=== PATIENT | female | born 1995 | race Caucasian/White ===

== ENCOUNTER 2017-06-28 12:06 | Emergency (ER) | payer OTHER ==
[2017-06-28] MEDS ORDERED: ACTIVATED CHARCOAL 25 GM BOTTLE PO ONE (12:20)
--- NOTE | 2017-06-28 12:24 | ER Document Report ---
ED Psych Disorder / Suicide - General Chief Complaint: Overdose Stated Complaint: POSSIBLE OVERDOSE Time Seen by Provider: 06/28/17 12:15 Information source: Patient Notes: 21-year-old female with a history of depression recently started around 3 weeks ago on Lexapro who supposedly took 2010 mg tablets about 1 hour prior to arrival. She did vomit around 10 minutes after the ingestion. Patient denies any auditory or visual hallucinations. No history of overdose or suicide attempts in the past. Patient denies any psychiatric hospitalizations in the past. She denies any new or worrisome conditions with family situations causing this gesture today. TRAVEL OUTSIDE OF THE [place] IN LAST 30 DAYS: No - HPI Patient complains to provider of: Suicidal attempt Onset: Just prior to arrival Onset was: Sudden Quality of pain: No pain Severity: Severe Pain Level: Denies Suicide Risk Factors: Other - See above Situational problems related to: Other - See above Suicide Attempt Method: Overdose Overdose of: Other - See above Normal mood: No Associated symptoms: Other - Tearful affect Similar symptoms previously: No Recently seen / treated by doctor: No - Related Data Allergies/Adverse Reactions: No Known Allergies Allergy (Verified 06/28/17 13:18) Past Medical History - General Information source: Patient - Social History Smoking Status: Unknown if Ever Smoked Cigarette use (# per day): No Chew tobacco use (# tins/day): No Smoking Education Provided: No Frequency of alcohol use: None Family History: Reviewed & Not Pertinent Review of Systems - Review of Systems Constitutional: denies: Fever EENT: denies: Eye discharge, Nose discharge Cardiovascular: denies: Chest pain, Palpitations, Heart racing Respiratory: denies: Short of breath Gastrointestinal: denies: Vomiting Genitourinary: denies: Dysuria Musculoskeletal: denies: Leg swelling Skin: Other - no hives. denies: Rash Neurological/Psychological: Other - no slurred speech -: Yes All other systems reviewed and negative Physical Exam - Vital signs Vitals: Temp Resp BP Pulse Ox 99.4 F 16 152/99 H 100 06/28/17 12:14 06/28/17 12:14 06/28/17 12:14 06/28/17 12:14 Notes: Reviewed vital signs and nursing note as charted by RN. CONSTITUTIONAL: Alert and oriented and responds appropriately to questions. Tearful in affect HEAD: Normocephalic; atraumatic EYES: PERRL; Sclerae non-icteric ENT: Normal nose; no rhinorrhea; moist mucous membranes; pharynx without lesions noted NECK: Supple without meningismus; non-tender CARD: Regular rate and rhythm; no murmurs RESP: Normal chest excursion without splinting or tachypnea; breath sounds clear and equal bilaterally ABD/GI: Normal bowel sounds; non-distended; soft, non-tender BACK: The back appears normal and is non-tender to palpation EXT: Normal ROM in all joints; non-tender to palpation SKIN: No acute lesions noted NEURO: CN II through XII are intact. Moves all extremities equally; Motor and sensory function intact PSYCH: The patient's mood and manner are appropriate. Grooming and personal hygiene are appropriate. Course - Re-evaluation Re-evalutation: 06/28/17 12:23 I did call the [facility] and they would like the patient on the monitor, obtain basic labs, magnesium level, and EKG, and provide activated charcoal. I do not believe that the patient is a high aspiration risk, so I do believe activated charcoal is reasonable. They believe the patient should be monitored for at least 6 hours. They state that the ingestion is greater than 300 mg, they recommend 24-hour monitoring. It appears from the patient's bottle that the patient ingested a maximum of 200 mg. Patient is currently on the monitor. Vital signs as recorded with a heart rate of 109. EKG shows a heart rate of 109, sinus tachycardia, narrow QRS, no obvious ST elevation or depression 06/28/17 13:03 We have provided the charcoal. Vital signs are still stable. Patient's mood has improved. 06/28/17 13:44 Vital signs are stable. The monitor shows no obvious ectopy. Labs as recorded. 06/28/17 18:01 Patient has remained stable on the monitor for 6 hour period. - Vital Signs Vital signs: Temp Pulse Resp BP Pulse Ox 99.4 F 22 H 116/67 98 06/28/17 12:14 06/28/17 17:21 06/28/17 17:21 06/28/17 17:21 - Laboratory Result Diagrams: 06/28/17 12:15 06/28/17 12:15 Laboratory results interpreted by me: 06/28/17 06/28/17 06/28/17 12:15 12:15 13:24 MCV 78 L MCH 25.4 L Eosinophils % 11.6 H Absolute Eosinophils 0.9 H Carbon Dioxide 21 L Glucose 115 H Ur Leukocyte Esterase SMALL H Salicylates < 1.0 L Acetaminophen < 10 L Critical Care Note - Critical Care Note Total time excluding time spent on procedures (mins): 40 Discharge - Discharge Clinical Impression: Suicide attempt Overdose Qualifiers: Encounter type: initial encounter Injury intent: intentional self-harm Qualified Code(s): T50.902A - Poisoning by unspecified drugs, medicaments and biological substances, intentional self-harm, initial encounter Condition: Fair Disposition: PSYCH HOSP/UNIT
[2017-06-28 12:33] LABS: ABSOLUTE BASOPHILS # (AUTO) 0.1 10^3/uL (0.0-0.2); ABSOLUTE EOSINOPHILS # (AUTO) 0.9 10^3/uL (0.0-0.6); ABSOLUTE LYMPHOCYTES (AUTO) 1.9 10^3/uL (0.5-4.7); ABSOLUTE MONOCYTES (AUTO) 0.6 10^3/uL (0.1-1.4); BASOPHILS % (AUTO) 1.1 % (0-2); EOSINOPHILS % (AUTO) 11.6 % (0-6); HEMATOCRIT 39.2 % (36.0-47.0); HEMOGLOBIN 12.8 g/dL (12.0-15.5); LYMPHOCYTES % (AUTO) 25.7 % (13-45); MEAN CORPUSCULAR HEMOGLOBIN 25.4 pg (27.0-33.4); MEAN CORPUSCULAR HGB CONC 32.7 g/dL (32.0-36.0); MEAN CORPUSCULAR VOLUME 78 fl (80-97); MONOCYTES % (AUTO) 8.5 % (3-13); PLATELET COUNT 372 10^3/uL (150-450); RED BLOOD COUNT 5.05 10^6/uL (3.72-5.28); RED CELL DISTRIBUTION WIDTH 13.8 % (11.5-14.0); SEGMENTED NEUTROPHILS % (AUTO) 53.1 % (42-78); TOTAL CELLS COUNTED % (AUTO) 100 %; WHITE BLOOD COUNT 7.5 10^3/uL (4.0-10.5)
[2017-06-28 12:47] LABS: ALANINE AMINOTRANSFERASE 29 U/L (9-52); ALBUMIN 4.7 g/dL (3.5-5.0); ALKALINE PHOSPHATASE 68 U/L (38-126); ANION GAP 17 (5-19); ASPARTATE AMINO TRANSFERASE 21 U/L (14-36); BILIRUBIN,DIRECT 0.2 mg/dL (0.0-0.4); BILIRUBIN,TOTAL 0.4 mg/dL (0.2-1.3); BLOOD UREA NITROGEN 12 mg/dL (7-20); CALCIUM 9.2 mg/dL (8.4-10.2); CARBON DIOXIDE 21 mmol/L (22-30); CHLORIDE 104 mmol/L (98-107); GLUCOSE 115 mg/dL (75-110); POTASSIUM 4.3 mmol/L (3.6-5.0); SODIUM 142.4 mmol/L (137-145); TOTAL PROTEIN 6.9 g/dL (6.3-8.2)
[2017-06-28 12:48] LABS: ACETAMINOPHEN < 10 ug/mL (10-30); ALCOHOL < 10 mg/dL (NONE DETECTED); SALICYLATE < 1.0 mg/dL (2.0-20.0)
[2017-06-28 13:41] LABS: APPEARANCE,URINE CLEAR; BILIRUBIN,URINE NEGATIVE (NEGATIVE); COLOR,URINE YELLOW; GLUCOSE, URINE NEGATIVE (NEGATIVE); KETONES,URINE NEGATIVE (NEGATIVE); LEUKOCYTE ESTERASE,URINE SMALL (NEGATIVE); NITRITE,URINE NEGATIVE (NEGATIVE); PROTEIN,URINE NEGATIVE (NEGATIVE); URINE SPECIFIC GRAVITY 1.014; UROBILINOGEN,URINE NEGATIVE mg/dL (<2.0)
[2017-06-28 13:55] LABS: URINE AMPHETAMINES SCREEN NEGATIVE; URINE BARBITURATES SCREEN NEGATIVE; URINE BENZODIAZEPINES SCREEN NEGATIVE; URINE COCAINE SCREEN NEGATIVE; URINE MARIJUANA (THC) SCREEN NEGATIVE; URINE METHADONE SCREEN NEGATIVE; URINE PHENCYCLIDINE SCREEN NEGATIVE
--- NOTE | 2017-06-28 15:15 | PSYCHOLOGICAL NOTE ---
Psych Note - Psych Note Psych Note: Reason for consult: Suicidal ideation, and attempt Contact Permissions, Jadon Juarez Time of consult: 1:54 pm : Disposition 2:57 pm Patient is a 21 year old female. Patient reports taking approximately 20 pills of her Lexapro. Patient reports she then told her what she did because she "felt bad". Patient reports she "feels bad" for her family and her because she wanted to kill herself and states that she does not want to attempt suicide again because she doesn't want to hurt anyone. Patient reports she has been having suicidal thoughts for 5 months , and has experienced depression for a year. Patient reports she talked to her about her feelings but never told him how serious she was about the thoughts ( whether she had intent). Patient reports around 5 months ago she went to see a therapist for around 1 month but did not like the therapy, so she stopped going. Patient reports she went to her primary care and was diagnosed with PTSD and depression by her Nurse Practitioner. Patient reports she reported to the nurse practitioner that the medications worked at first but then were no longer working, and her dosage was increased by 10 mg of Lexapro to 20 mg of Lexapro daily but she never went to fill the prescription. Patient denies any previous inpatient psychiatric stay, patient denies any previous history of substance use. Patient denies active SI/HI at the end of assessment. Clinician provided information to patient regarding Involuntary commitment process and criteria. Clinician observed patient presents with flat affect and guarded. Collateral Information [ Spouse Fredy Juarez] Patient's reports a few days ago patient talked about her suicidal ideation but assured her that she would not act on those thoughts. Patient's reports he is concerned for her safety because he could not tell that anything was wrong, and she was not honest with him and attempted suicide. Patient's reports he was aware of her depression and assisted her in seeing a therapist, but was aware that she was not benefiting from the ( 1 month) of therapy. Patient's reports he does not feel patient is being truthful to hospital staff about not having active SI during assessment. Medication Recommendation: Medication recommendation made by contracted [facility] psychiatrist Dr. Mark MD includes: 1. Begin Vistaril 50 mg by mouth every 6 hours as needed. 2. Discontinue Lexapro 10 mg by mouth daily. 3. Begin Effexor 37.5 mg by mouth daily. 4. Begin BuSpar 10 mg by mouth QHS. Diagnosis: Per patient Hx: 309.81 ( F43.10) Post traumatic stress disorder Per patient Hx: 311 ( F32.0) Unspecified Depressive Disorder Impression/ Plan: Recommendation to involuntary commit patient due to patient meeting criteria [facility] 122C, patient stated " I tried to kill myself".Patient reports she took approximately 20 pills of her medications with intent to commit suicide.
--- NOTE | 2017-06-28 16:04 | EKG REPORT ---
SEVERITY:- BORDERLINE ECG - SINUS TACHYCARDIA BORDERLINE T ABNORMALITIES, INFERIOR LEADS : Confirmed by: Jose Raul Bliss MD 28-Jun-2017 16:03:55
[2017-06-28] MEDS: HYDROXYZINE PAMOATE 50 MG CAPSULE PO PRN (21:14)
[2017-06-28] MEDS ORDERED: BUSPIRONE HCL 10 MG TABLET PO SCH (22:00)
[2017-06-29] MEDS: HYDROXYZINE PAMOATE 50 MG CAPSULE PO PRN (00:15)
--- NOTE | 2017-06-29 08:53 | PSYCHOLOGICAL NOTE ---
Psych Note - Psych Note Psych Note: Reason for Consult: Suicidal Ideation - consult re-evaluation Contact permissions: Fredy [phone] Patient is a 21 year old female. Patient reports she is feeling better. Patient reports she slept well last night. Patient stated " I made a rash decision and I regret it". Patient denies SI/HI. Patient stated " I want to live, and I have my family and aunt who supports me". Patient reports that she is interested in seeking therapy again, stating " I'd like to try it again". Clinician observed patient appears with brighter affect, and is laughing/smiling with her . Clinician observed patient is oriented to person, time, and situation. Collateral Information: Patient's reports he is able to monitor patient at home, and is able to notice when patient is not doing well mentally. Patient' s reports he notices a change in personality, and patient will do things differently. Patient's reports if he feels patient is at risk of a suicidal attempt or has SI with intent and plan he will bring her to the ED. Patient's reports he will lock her medications away and monitor them, assisting her with medication administration. Medication Recommendation: Medication recommendation made by contracted [facility] psychiatrist Dr. Mark MD includes: 1. Continue Vistaril 50 mg by mouth every 6 hours as needed. 2. Continue Effexor 37.5 mg by mouth daily. 3. Continue BuSpar 10 mg by mouth QHS. Diagnosis: Per patient Hx: 309.81 ( F43.10) Post traumatic stress disorder Per patient Hx: 311 ( F32.0) Unspecified Depressive Disorder Impression/Plan: Patient is psychiatrically cleared for discharge. Recommendation to rescind involuntary commitment due to patient not meeting criteria [place] [facility] 122C. Recommendation for patient to see an outpatient therapist and follow up with provider for medication management.
[2017-06-29] MEDS ORDERED: VENLAFAXINE HCL 37.5 MG CAP.SR.24H PO SCH (10:00)
--- NOTE | 2017-06-29 10:09 | ER Document Report ---
Doctor's Note Notes: 06/29/17 10:08 Rounds: Chart reviewed. Patient sleeping so not awakened for interview. Being evaluated for PTSD, depression, and suicidal thoughts. Lab studies are all normal. Vital signs are all normal. Patient appears to be medically stable for transfer or discharge. Nuzhat Allen MD
[2017-06-29 10:23] VITALS: BP 114/68
== END 2017-06-29 10:25 ==
LOC: ER 12:06
DX: T43.222A Poisoning by selective serotonin reuptake inhibitors, intentional self-harm, initial encounter (principal); Y92.9 Unspecified place or not applicable
CPT/HCPCS: 93005; 99291; 36415; 80307 ×4; 83735; 84703; 85025; 80053; 81001; 93010; J3490 ×2